=== PATIENT | female | born 1995 ===

== ENCOUNTER 2016-05-21 01:13 | Observation (INO) | payer OTHER, MEDICAID ==
[2016-05-21] MEDS ORDERED: Sodium Chloride 0.9% 1,000 ML IV STA ×2 (01:33→05:23)
[2016-05-21 01:49] LABS: BASO # 0.1 K/uL (0.0-0.2); BASO % 0.9 % (0.0-2.0); EOS # 0.1 K/uL (0.0-0.7); EOS % 1.7 % (0.0-4.0); HEMATOCRIT 40.7 % (34.0-47.0); LYMPH % 42.1 % (20.0-40.0); MEAN CELL VOLUME 87.9 fl (81.0-99.0); MEAN CORPUSCULAR HEMOGLOBIN 28.4 pg (27.0-31.0); MEAN CORPUSCULAR HGB CONC 32.3 g/dL (33.0-37.0); MEAN PLATELET VOLUME 8.7 fl (7.2-11.7); MONO # 0.6 K/uL (0.0-0.8); MONO % 7.8 % (0.0-10.0); NEUT # 3.3 K/uL (1.8-7.0); NEUT % 47.5 % (50.0-75.0); RED CELL DISTRIBUTION WIDTH 13.5 % (11.5-14.5); WHITE BLOOD COUNT 7.1 K/uL (4.8-10.8)
--- NOTE | 2016-05-21 02:01 | ED PDOC ---
HPI: Psych/Substance Abuse Time Seen by Provider: 05/21/16 01:27 Chief Complaint (Nursing): Substance Abuse Chief Complaint (Provider): Overdose ED Caveat: Uncooperative History Per: EMS History/Exam Limitations: no limitations Onset/Duration Of Symptoms: Mins Current Symptoms Are (Timing): Still Present Suicide/Self Injury Attempted (Context): Ingestion Severity: Moderate Additional History Per: EMS Additional Complaint(s): Pt is a 20yo female, brought to ED by EMS for evaluation s/p suicidal attempt. Per EMS, pt took an entire bottle of wellbutrin in an attempt to kill herself. Pt unwilling to give provider more information as to how many pills she took, how many mg the tablets are and what time she took the pills. She offers no other complaints. Pt is uncooperative so a full HPI is unattainable. Past Medical History Reviewed: Historical Data, Nursing Documentation, Vital Signs Vital Signs: Last Vital Signs Temp 97.8 F 05/21/16 01:51 Pulse 95 H 05/21/16 01:51 Resp 16 05/21/16 01:51 BP 103/66 05/21/16 01:51 Pulse Ox 100 05/21/16 01:51 - Family History Family History: States: No Known Family Hx - Home Medications Home Medications: Ambulatory Orders Medication Instructions Recorded Sertraline [Zoloft] 100 mg PO DAILY 05/21/16 buPROPion [Wellbutrin] 100 mg PO DAILY 05/21/16 - Allergies Allergies/Adverse Reactions: Allergies Allergy/AdvReac Type Severity Reaction Status Date / Time No Known Allergies Allergy Verified 05/21/16 01:26 Review of Systems ROS Statement: Except As Marked, All Systems Reviewed And Found Negative Psych: Positive for: Suicidal ideation (suicide attempt with overdose on wellbutrin) Physical Exam - Reviewed Nursing Documentation Reviewed: Yes Vital Signs Reviewed: Yes - Physical Exam Appears: Positive for: Well, Non-toxic, No Acute Distress Head Exam: Positive for: ATRAUMATIC, NORMAL INSPECTION, NORMOCEPHALIC Skin: Positive for: Normal Color, Warm, DRY Eye Exam: Positive for: Normal appearance, EOMI, PERRL Neck: Positive for: Normal, Supple Cardiovascular/Chest: Positive for: Regular Rate, Rhythm Respiratory: Positive for: Normal Breath Sounds. Negative for: Respiratory Distress Gastrointestinal/Abdominal: Positive for: Soft. Negative for: Tenderness Neurologic/Psych: Positive for: Alert, Oriented - Laboratory Results Result Diagrams: 05/21/16 13:30 05/21/16 13:13 - ECG O2 Sat by Pulse Oximetry: 100 (RA) Pulse Ox Interpretation: Normal - Critical Care Total Time (In Min): 30 Documented Critical Care: Time excludes all time spent performint seperately billable procedures Medical Decision Making Medical Decision Making: Time: 0140 Impression: Suicidal attempt with overdose on wellbutrin Plan: -- Poison control consult -- CBC -- PTT -- Prothrombin Time -- IV Fluids -- Urinalysis -- 1:1 observation --Reassess Time: 0318 Labs reviewed with no significant abnormalities. Poison control advised that pt be observed for 12-24 hours due to lack of certainty regarding amount of Wellbutrin taken and dosage amount and if the pills were extended release. Also advised consideration of administration of charcoal, which was ordered. Case discussed with James Zimmer, who will admit pt unde Dr. Hayes, medicine animal control officer. Diagnosis: Overdose on Wellbutrin Scribe Attestation: Documented by Lilibeth Torres acting as a scribe for Joseph Abbott MD. Provider Attestation: All medical record entries made by the Scribe were at my direction and personally dictated by me. I have reviewed the chart and agree that the record accurately reflects my personal performance of the history, physical exam, medical decision making, and the department course for this patient. I have also personally directed, reviewed, and agree with the discharge instructions and disposition. Disposition - Clinical Impression Clinical Impression: Overdose - Patient ED Disposition Is Patient to be Admitted: Yes Discussed With : James Zimmer - Disposition Disposition Time: 03:18 Condition: FAIR - Pt Status Changed To: Hospital Disposition Of: Inpatient - Admit Certification Admit to Inpatient:: After my assessment, the patient will require hospitalization for at least two midnights. This is because of the severity of symptoms shown, intensity of services needed, and/or the medical risk in this patient being treated as an outpatient.
[2016-05-21 02:05] LABS: PARTIAL THROMBOPLASTIN TIME 25.7 SECONDS (23.3-32.5)
[2016-05-21 02:09] LABS: ALB/GLOB RATIO 1.2 (1.0-2.1); ALCOHOL SERUM 164 mg/dl (0-10); ALKALINE PHOSPHATASE 75 U/L (38-126); ALT/SGPT 26 U/L (9-52); AST/SGOT 34 U/L (14-36); BILIRUBIN,TOTAL 0.4 mg/dl (0.2-1.3); BLOOD UREA NITROGEN 10 mg/dl (7-17); CALCIUM 9.2 mg/dL (8.4-10.2); CARBON DIOXIDE 21 mmol/L (22-30); CHLORIDE 109 mmol/L (98-107); GFR AFRICAN-AMERICAN > 60; GLUCOSE,RANDOM 93 mg/dL (65-105); POTASSIUM 4.1 MMOL/L (3.6-5.0); SODIUM 150 mmol/l (132-148); TOTAL PROTEIN 8.4 G/DL (6.3-8.2)
[2016-05-21] MEDS ORDERED: Activated Charcoal/Sorbitol 25 GM/120 ML PO ONE (02:57)
[2016-05-21 03:46] LABS: RBC URINE < 1 /hpf (0-3); URINE BILIRUBIN NEGATIVE (NEGATIVE); URINE BLOOD NEGATIVE (NEGATIVE); URINE COLOR COLORLESS (YELLOW); URINE GLUCOSE (UA) NEG (Normal); URINE KETONE NEGATIVE (NEGATIVE); URINE LEUKOCYTE ESTERASE NEG Leu/uL (Negative); URINE PROTEIN NEGATIVE (NEGATIVE); URINE UROBILINOGEN 0.2-1.0 mg/dL (0.2-1.0); WBC URINE 1 /hpf (0-5)
--- NOTE | 2016-05-21 11:26 | CP.PCM.HP ---
History of Present Illness - History of Present Illness History of Present Illness: pt admitted for suicide attempt, states was depressed and watchinga tv show about suicide and drinking wine. took wellbutrin, unkn amt or dsoing and another unkn medication-unkn amt or dsoing. was given activated charcol in er. at preent pain free but drowsy and tachycardic-ST 110-120/ no f/c, n/v/d bw noted. repeat bw and ekg at 1500. pending psych consult calm and cooperative w/ mother and 1:1 at beside. Present on Admission - Present on Admission Any Indicators Present on Admission: No Review of Systems - Cardiovascular Cardiovascular: As Per HPI, Rapid Heart Rate - Psychiatric Psychiatric: As Per HPI, Suicidal Ideation Past Patient History - Past Social History Smoking Status: Never Smoked - PSYCHIATRIC Hx Depression: Yes Hx Substance Use: Yes - SURGICAL HISTORY Hx Surgeries: No - ANESTHESIA Hx Anesthesia: No Meds Allergies/Adverse Reactions: Allergies Allergy/AdvReac Type Severity Reaction Status Date / Time No Known Allergies Allergy Verified 05/21/16 01:26 Physical Exam - Constitutional Appears: Well, Non-toxic, No Acute Distress - Head Exam Head Exam: ATRAUMATIC, NORMAL INSPECTION, NORMOCEPHALIC - Eye Exam Eye Exam: EOMI, Normal appearance, PERRL Pupil Exam: NORMAL ACCOMODATION, PERRL - ENT Exam ENT Exam: Mucous Membranes Moist, Normal Exam - Neck Exam Neck exam: Positive for: Normal Inspection - Respiratory Exam Respiratory Exam: Clear to Auscultation Bilateral, NORMAL BREATHING PATTERN - Cardiovascular Exam Cardiovascular Exam: Tachycardia, REGULAR RHYTHM, RRR, +S1, +S2 - GI/Abdominal Exam GI & Abdominal Exam: Normal Bowel Sounds, Soft. absent: Tenderness - Extremities Exam Extremities exam: Positive for: full ROM, normal capillary refill, normal inspection, pedal pulses present - Back Exam Back exam: NORMAL INSPECTION - Neurological Exam Neurological exam: Alert, CN II-XII Intact, Normal Gait, Oriented x3, Reflexes Normal - Psychiatric Exam Psychiatric exam: Depressed, Normal Mood - Skin Skin Exam: Dry, Intact, Normal Color, Warm Results - Vital Signs Recent Vital Signs: Last Vital Signs Temp 97.9 F 05/21/16 08:30 Pulse 109 H 05/21/16 10:47 Resp 14 05/21/16 10:47 BP 104/47 L 05/21/16 10:47 Pulse Ox 99 05/21/16 10:47 - Labs Result Diagrams: 05/21/16 01:46 05/21/16 01:46 Labs: Laboratory Results - last 24 hr 05/21/16 05/21/16 03:15 03:18 Urine Color Colorless Urine Clarity Clear Urine pH 6.0 Ur Specific [place] 1.006 Urine Protein Negative Urine Glucose (UA) Neg Urine Ketones Negative Urine Blood Negative Urine Nitrate Negative Urine Bilirubin Negative Urine Urobilinogen 0.2-1.0 Ur Leukocyte Esterase Neg Urine RBC (Auto) < 1 Urine Microscopic WBC 1 Ur Squamous Epith Cells < 1 Urine Opiates Screen Negative Urine Methadone Screen Negative Ur Barbiturates Screen Negative Ur Phencyclidine Scrn Negative Ur Amphetamines Screen Negative U Benzodiazepines Scrn Negative U Oth Cocaine Metabols Negative U Cannabinoids Screen Negative Assessment & Plan (1) Overdose Assessment and Plan: suicide attempot-1:1, psych consult pending ivf tele monitor rpeat bw and ekg hold all meds no fruther si/hi verbalized Status: Acute (2) DVT prophylaxis Assessment and Plan: scd and aehose no anticoag for now Status: Acute Decision To Admit - Pt Status Changed To: Hospital Disposition Of: Inpatient - Admit Certification Admit to Inpatient:: After my assessment, the patient will require hospitalization for at least two midnights. This is because of the severity of symptoms shown, intensity of services needed, and/or the medical risk in this patient being treated as an outpatient. - . Bed Request Type: Telemetry Admitting Physician: Yosi Hayes
--- NOTE | 2016-05-21 12:28 | RAD ---
HISTORY: Admission. Portable study 04:15. COMPARISON: No prior. FINDINGS: LUNGS: No active pulmonary disease. PLEURA: No significant pleural effusion identified, no pneumothorax apparent. CARDIOVASCULAR: Normal. OSSEOUS STRUCTURES: No significant abnormalities. VISUALIZED UPPER ABDOMEN: Normal. OTHER FINDINGS: None. IMPRESSION: No active disease.
[2016-05-21 13:39] LABS: BASO % 0.9 % (0.0-2.0); EOS % 0.3 % (0.0-4.0); HEMATOCRIT 34.1 % (34.0-47.0); LYMPH % 18.6 % (20.0-40.0); MEAN CELL VOLUME 87.1 fl (81.0-99.0); MEAN CORPUSCULAR HEMOGLOBIN 28.5 pg (27.0-31.0); MEAN CORPUSCULAR HGB CONC 32.7 g/dL (33.0-37.0); MEAN PLATELET VOLUME 8.6 fl (7.2-11.7); MONO # 0.3 K/uL (0.0-0.8); MONO % 5.4 % (0.0-10.0); NEUT # 3.9 K/uL (1.8-7.0); NEUT % 74.8 % (50.0-75.0); NRBC % 0.1 % (0.0-0.0); WHITE BLOOD COUNT 5.2 K/uL (4.8-10.8)
[2016-05-21 13:50] LABS: ALB/GLOB RATIO 1.2 (1.0-2.1); ALCOHOL SERUM < 10 mg/dl (0-10); ALKALINE PHOSPHATASE 65 U/L (38-126); ALT/SGPT 31 U/L (9-52); AST/SGOT 23 U/L (14-36); BILIRUBIN,TOTAL 0.4 mg/dl (0.2-1.3); BLOOD UREA NITROGEN 5 mg/dl (7-17); CALCIUM 8.6 mg/dL (8.4-10.2); CARBON DIOXIDE 23 mmol/L (22-30); CHLORIDE 107 mmol/L (98-107); GFR AFRICAN-AMERICAN > 60; GLUCOSE,RANDOM 91 mg/dL (65-105); POTASSIUM 3.9 MMOL/L (3.6-5.0); SODIUM 141 mmol/l (132-148); TOTAL PROTEIN 6.4 G/DL (6.3-8.2)
[2016-05-21] MEDS: Sodium Chloride 0.9% 1,000 ML IV SCH ×2 (14:15→22:00)
--- NOTE | 2016-05-21 20:09 | CARD ---
APPROVED REPORT EKG Measurement Heart [id number] <Conclusion> Normal sinus rhythm Normal ECG
--- NOTE | 2016-05-21 20:10 | CARD ---
APPROVED REPORT EKG Measurement Heart [id number] <Conclusion> Normal sinus rhythm Normal ECG
[2016-05-22] MEDS: Sodium Chloride 0.9% 1,000 ML IV SCH ×2 (04:32→12:10)
[2016-05-22 05:15] LABS: BASO % 0.7 % (0.0-2.0); EOS % 0.3 % (0.0-4.0); HEMATOCRIT 33.6 % (34.0-47.0); LYMPH # 1.9 K/uL (1.0-4.3); LYMPH % 29.8 % (20.0-40.0); MEAN CELL VOLUME 87.5 fl (81.0-99.0); MEAN CORPUSCULAR HEMOGLOBIN 28.6 pg (27.0-31.0); MEAN CORPUSCULAR HGB CONC 32.7 g/dL (33.0-37.0); MEAN PLATELET VOLUME 8.9 fl (7.2-11.7); MONO # 0.5 K/uL (0.0-0.8); NEUT # 3.8 K/uL (1.8-7.0); NEUT % 61.2 % (50.0-75.0); NRBC % 0.1 % (0.0-0.0); RED CELL DISTRIBUTION WIDTH 12.8 % (11.5-14.5); WHITE BLOOD COUNT 6.3 K/uL (4.8-10.8)
[2016-05-22 05:17] LABS: ALB/GLOB RATIO 1.1 (1.0-2.1); ALKALINE PHOSPHATASE 57 U/L (38-126); ALT/SGPT 26 U/L (9-52); AST/SGOT 29 U/L (14-36); BILIRUBIN,TOTAL 0.5 mg/dl (0.2-1.3); BLOOD UREA NITROGEN 5 mg/dl (7-17); CALCIUM 8.7 mg/dL (8.4-10.2); CARBON DIOXIDE 23 mmol/L (22-30); CHLORIDE 108 mmol/L (98-107); GFR AFRICAN-AMERICAN > 60; GLUCOSE,RANDOM 88 mg/dL (65-105); POTASSIUM 3.8 MMOL/L (3.6-5.0); SODIUM 143 mmol/l (132-148); TOTAL PROTEIN 5.9 G/DL (6.3-8.2)
--- NOTE | 2016-05-22 06:21 | CARD ---
APPROVED REPORT EKG Measurement Heart [id number] [place] [id number] <Conclusion> Normal sinus rhythm Normal ECG
--- NOTE | 2016-05-22 07:22 | CP.PCM.PN ---
Subjective - Date & Time of Evaluation Date of Evaluation: 05/22/16 Time of Evaluation: 07:22 - Subjective Subjective: pt doing well, no complaints. pneding am ekg. nsr on miontor, pm ekg wnl. am labs wnl. 1:1 at bedside. calm and cooperative. for psych eval. Objective - Vital Signs/Intake and Output Vital Signs (last 24 hours): Temp Pulse Resp BP Pulse Ox 98.6 F 100 H 18 101/63 98 05/22/16 05:00 05/22/16 05:00 05/22/16 05:00 05/22/16 05:00 05/22/16 05:00 - Medications Medications: Current Medications Sodium Chloride (Sodium Chloride 0.9%) 1,000 mls @ 150 mls/hr IV .Q6H40M ELY Stop: 05/22/16 14:01 Last Admin: 05/22/16 04:32 Dose: 150 mls/hr Ondansetron HCl (Zofran Inj) 4 mg IVP Q6 PRN PRN Reason: Nausea/Vomiting Last Admin: 05/21/16 14:10 Dose: 4 mg - Labs Labs: 05/22/16 04:00 05/22/16 04:00 PT 10.9 SECONDS (9.6-11.2) 05/21/16 01:46 INR 1.05 (0.92-1.08) 05/21/16 01:46 APTT 25.7 SECONDS (23.3-32.5) 05/21/16 01:46 - Constitutional Appears: Well, Non-toxic, No Acute Distress - Head Exam Head Exam: ATRAUMATIC, NORMAL INSPECTION, NORMOCEPHALIC - Eye Exam Eye Exam: EOMI, Normal appearance, PERRL Pupil Exam: NORMAL ACCOMODATION, PERRL - ENT Exam ENT Exam: Mucous Membranes Moist, Normal Exam - Neck Exam Neck Exam: Full ROM, Normal Inspection. absent: Lymphadenopathy - Respiratory Exam Respiratory Exam: Clear to Ausculation Bilateral, NORMAL BREATHING PATTERN - Cardiovascular Exam Cardiovascular Exam: REGULAR RHYTHM, +S1, +S2. absent: Murmur - GI/Abdominal Exam GI & Abdominal Exam: Soft, Normal Bowel Sounds. absent: Tenderness - Exam Exam: NORMAL INSPECTION - Extremities Exam Extremities Exam: Full ROM, Normal Capillary Refill, Normal Inspection. absent : Joint Swelling, Pedal Edema - Back Exam Back Exam: NORMAL INSPECTION - Neurological Exam Neurological Exam: Alert, Awake, CN II-XII Intact, Normal Gait, Oriented x3 - Psychiatric Exam Psychiatric exam: Normal Affect, Normal Mood - Skin Skin Exam: Dry, Intact, Normal Color, Warm Assessment and Plan (1) Overdose Status: Acute (2) DVT prophylaxis Status: Acute - Assessment and Plan (Free Text) Assessment: (1) Overdose Assessment and Plan: suicide attempot-1:1, psych consult pending ivf tele monitor rpeat bw and ekg hold all meds no fruther si/hi verbalized Status: Acute (2) DVT prophylaxis Assessment and Plan: scd and aehose no anticoag for now Status: Acute medically cleared
--- NOTE | 2016-05-22 09:55 | CP.PCM.CON ---
History of Present Illness - History of Present Illness History of Present Illness: Psychiatry consult called for evaluation of suicide attempt CC: "I took a bunch of pills." HPI: 20 yo female w/ h/o depression, presented s/p suicide attempt by overdosing on Wellbutrin, Zoloft and "migraine medications." Patient reports that she was drinking two nights ago and felt overwhelmed by her many problems ( would not specify what the problems are) and impulsively decided to overdose on pills as an admitted suicide attempt. Patient reports that she is not currently feeling suicidal. She expressed remorse for her recent attempt and wants to be discharged to home today so she can continue going to school. She reports anxiety/poor sleep/normal appetite. NO chele/delusions/paranoia/ hallucinations/homicidal ideation. PPHx: Outpatient psychiatric treatment, currently taking Wellbutrin 100 mg PO Daily. Previously prescribed Zoloft. Last psychiatric appointment, over a month ago. Denies h/o suicide attempts or self injurious behaviors. MHx: Denies All: NKDA FHx: Denies family h/o mental illness SHx: Attends art school. Lives with her parents. +Chronic marijuana abuse. + drinks alcohol intermittently on the weekends. No IVDU. No cigarettes. MSE: A + O x 3. Calm, cooperative, good eye contact. Looks stated age. Speech normal. Mood "okay". Affect- full range. Thought process-linear, goal oriented. Thought content- no delusions. No hallucinations. Denies suicidal ideation/plan/intent. Denies HI. Insight/judgement-fair Impression: 20 yo female w/ h/o depression s/p suicide attempt by overdose, would benefit from inpatient psychiatric admission, but currently refusing voluntary admission. Recommendations: -Screen for involuntary psychiatric admission -Continue 1:1 for safety -Hold Wellbutrin -Call w/ further questions, Dr. Joyce [phone] Review of Systems - Review of Systems All systems: reviewed and no additional remarkable complaints except - Psychiatric Psychiatric: As Per HPI, Anxiety, Depression, Suicidal Ideation Past Patient History - Past Medical History & Family History Past Medical History?: Yes - Past Social History Smoking Status: Never Smoked - CARDIAC Hx Cardiac Disorders: No - PULMONARY Hx Respiratory Disorders: No - NEUROLOGICAL Hx Neurological Disorder: No - HEENT Hx HEENT Problems: No - RENAL Hx Chronic Kidney Disease: No - ENDOCRINE/METABOLIC Hx Endocrine Disorders: No - HEMATOLOGICAL/ONCOLOGICAL Hx Blood Disorders: No - INTEGUMENTARY Hx Dermatological Problems: No - MUSCULOSKELETAL/RHEUMATOLOGICAL Hx Musculoskeletal Disorders: No Hx Falls: No - GASTROINTESTINAL Hx Gastrointestinal Disorders: No - GENITOURINARY/GYNECOLOGICAL Hx Genitourinary Disorders: No - PSYCHIATRIC Hx Substance Use: Yes - SURGICAL HISTORY Hx Surgeries: No - ANESTHESIA Hx Anesthesia: No Meds Allergies/Adverse Reactions: Allergies Allergy/AdvReac Type Severity Reaction Status Date / Time No Known Allergies Allergy Verified 05/21/16 01:26 - Medications Medications: Current Medications Sodium Chloride (Sodium Chloride 0.9%) 1,000 mls @ 150 mls/hr IV .Q6H40M ELY Stop: 05/22/16 14:01 Last Admin: 05/22/16 04:32 Dose: 150 mls/hr Ondansetron HCl (Zofran Inj) 4 mg IVP Q6 PRN PRN Reason: Nausea/Vomiting Last Admin: 05/21/16 14:10 Dose: 4 mg Results - Vital Signs Recent Vital Signs: Last Vital Signs Temp 98.6 F 05/22/16 05:00 Pulse 100 H 05/22/16 05:00 Resp 18 05/22/16 05:00 BP 101/63 05/22/16 05:00 Pulse Ox 98 05/22/16 05:00 - Labs Result Diagrams: 05/22/16 04:00 05/22/16 04:00 Labs: Laboratory Results - last 24 hr 05/21/16 05/21/16 05/22/16 13:13 13:30 04:00 WBC 5.2 6.3 RBC 3.92 3.84 Hgb 11.2 L 11.0 L Hct 34.1 33.6 L MCV 87.1 87.5 MCH 28.5 28.6 MCHC 32.7 L 32.7 L RDW 13.0 12.8 Plt Count 212 200 MPV 8.6 8.9 Neut % (Auto) 74.8 61.2 Lymph % (Auto) 18.6 L 29.8 [place] % (Auto) 5.4 8.0 Eos % (Auto) 0.3 0.3 Baso % (Auto) 0.9 0.7 Neut # 3.9 3.8 Lymph # 1.0 1.9 [place] # 0.3 0.5 Eos # 0.0 0.0 Baso # 0.0 0.0 Sodium 141 143 Potassium 3.9 3.8 Chloride 107 108 H Carbon Dioxide 23 23 Anion Gap 16 16 BUN 5 L 5 L Creatinine 0.5 L 0.5 L Est GFR ( Amer) > 60 > 60 Est GFR (Non-Af Amer) > 60 > 60 Random Glucose 91 88 Calcium 8.6 8.7 Total Bilirubin 0.4 0.5 AST 23 29 ALT 31 26 Alkaline Phosphatase 65 57 Total Protein 6.4 5.9 L Albumin 3.5 D 3.1 L Globulin 2.9 2.7 Albumin/Globulin Ratio 1.2 1.1 Alcohol, Quantitative < 10
[2016-05-22 15:42] VITALS: RESP 20; TEMP 98.5
[2016-05-22 18:58] VITALS: BP 100/64; PULSE 90; O2SAT 99
--- NOTE | 2016-05-30 08:50 | CP.PCM.DIS ---
Provider - Provider Date of Admission: 05/21/16 02:58 Attending physician: Yosi Hayes MD Time Spent in preparation of Discharge (in minutes): 15 Diagnosis - Discharge Diagnosis (1) Overdose Status: Acute (2) DVT prophylaxis Status: Acute Hospital Course - Lab Results Lab Results: Most Recent Lab Values WBC 6.3 K/uL (4.8-10.8) 05/22/16 04:00 RBC 3.84 Mil/uL (3.80-5.20) 05/22/16 04:00 Hgb 11.0 g/dL (12.0-16.0) L 05/22/16 04:00 Hct 33.6 % (34.0-47.0) L 05/22/16 04:00 MCV 87.5 fl (81.0-99.0) 05/22/16 04:00 MCH 28.6 pg (27.0-31.0) 05/22/16 04:00 MCHC 32.7 g/dL (33.0-37.0) L 05/22/16 04:00 RDW 12.8 % (11.5-14.5) 05/22/16 04:00 Plt Count 200 K/uL (130-400) 05/22/16 04:00 MPV 8.9 fl (7.2-11.7) 05/22/16 04:00 Neut % (Auto) 61.2 % (50.0-75.0) 05/22/16 04:00 Lymph % (Auto) 29.8 % (20.0-40.0) 05/22/16 04:00 [place] % (Auto) 8.0 % (0.0-10.0) 05/22/16 04:00 Eos % (Auto) 0.3 % (0.0-4.0) 05/22/16 04:00 Baso % (Auto) 0.7 % (0.0-2.0) 05/22/16 04:00 Neut # 3.8 K/uL (1.8-7.0) 05/22/16 04:00 Lymph # 1.9 K/uL (1.0-4.3) 05/22/16 04:00 [place] # 0.5 K/uL (0.0-0.8) 05/22/16 04:00 Eos # 0.0 K/uL (0.0-0.7) 05/22/16 04:00 Baso # 0.0 K/uL (0.0-0.2) 05/22/16 04:00 PT 10.9 SECONDS (9.6-11.2) 05/21/16 01:46 INR 1.05 (0.92-1.08) 05/21/16 01:46 APTT 25.7 SECONDS (23.3-32.5) 05/21/16 01:46 Sodium 143 mmol/l (132-148) 05/22/16 04:00 Potassium 3.8 MMOL/L (3.6-5.0) 05/22/16 04:00 Chloride 108 mmol/L (98-107) H 05/22/16 04:00 Carbon Dioxide 23 mmol/L (22-30) 05/22/16 04:00 Anion Gap 16 (10-20) 05/22/16 04:00 BUN 5 mg/dl (7-17) L 05/22/16 04:00 Creatinine 0.5 mg/dL (0.7-1.2) L 05/22/16 04:00 Est GFR ( Amer) > 60 05/22/16 04:00 Est GFR (Non-Af Amer) > 60 05/22/16 04:00 POC Glucose (mg/dL) 98 mg/dL (65-110) 05/21/16 01:24 Random Glucose 88 mg/dL (65-105) 05/22/16 04:00 Calcium 8.7 mg/dL (8.4-10.2) 05/22/16 04:00 Total Bilirubin 0.5 mg/dl (0.2-1.3) 05/22/16 04:00 AST 29 U/L (14-36) 05/22/16 04:00 ALT 26 U/L (9-52) 05/22/16 04:00 Alkaline Phosphatase 57 U/L (38-126) 05/22/16 04:00 Total Protein 5.9 G/DL (6.3-8.2) L 05/22/16 04:00 Albumin 3.1 g/dL (3.5-5.0) L 05/22/16 04:00 Globulin 2.7 gm/dL (2.2-3.9) 05/22/16 04:00 Albumin/Globulin Ratio 1.1 (1.0-2.1) 05/22/16 04:00 Urine Color Colorless (YELLOW) 05/21/16 03:15 Urine Clarity Clear (Clear) 05/21/16 03:15 Urine pH 6.0 (5.0-8.0) 05/21/16 03:15 Ur Specific [place] 1.006 (1.003-1.030) 05/21/16 03:15 Urine Protein Negative mg/dL (NEGATIVE) 05/21/16 03:15 Urine Glucose (UA) Neg mg/dL (Normal) 05/21/16 03:15 Urine Ketones Negative mg/dL (NEGATIVE) 05/21/16 03:15 Urine Blood Negative (NEGATIVE) 05/21/16 03:15 Urine Nitrate Negative (NEGATIVE) 05/21/16 03:15 Urine Bilirubin Negative (NEGATIVE) 05/21/16 03:15 Urine Urobilinogen 0.2-1.0 mg/dL (0.2-1.0) 05/21/16 03:15 Ur Leukocyte Esterase Neg Krys/uL (Negative) 05/21/16 03:15 Urine RBC (Auto) < 1 /hpf (0-3) 05/21/16 03:15 Urine Microscopic WBC 1 /hpf (0-5) 05/21/16 03:15 Ur Squamous Epith Cells < 1 /hpf (0-5) 05/21/16 03:15 Salicylates < 1.0 mg/dl 05/21/16 01:46 Urine Opiates Screen Negative (NEGATIVE) 05/21/16 03:18 Urine Methadone Screen Negative (NEGATIVE) 05/21/16 03:18 Acetaminophen < 10.0 ug/ml (10.0-30.0) L 05/21/16 01:46 Ur Barbiturates Screen Negative (NEGATIVE) 05/21/16 03:18 Ur Phencyclidine Scrn Negative (NEGATIVE) 05/21/16 03:18 Ur Amphetamines Screen Negative (NEGATIVE) 05/21/16 03:18 U Benzodiazepines Scrn Negative (NEGATIVE) 05/21/16 03:18 U Oth Cocaine Metabols Negative (NEGATIVE) 05/21/16 03:18 U Cannabinoids Screen Negative (NEGATIVE) 05/21/16 03:18 Alcohol, Quantitative < 10 mg/dl (0-10) 05/21/16 13:13 Discharge Exam - Head Exam Head Exam: ATRAUMATIC, NORMAL INSPECTION, NORMOCEPHALIC Discharge Plan - Follow Up Plan Condition: FAIR Disposition: DISCHARGE TO PSYCH HOSPITAL Additional Instructions: dc to psych final dx wellbutrin od
== END 2016-05-22 18:50 ==
LOC: H.ER 01:13 → INTOOBSV 02:58 → H.ERHOLD 02:58 → H.TEL 16:13
PROVIDERS: ADMIT Family Medicine; ATTEND Family Medicine
DX: T43.292A Poisoning by other antidepressants, intentional self-harm, initial encounter (principal); F32.9 Major depressive disorder, single episode, unspecified; R40.0 Somnolence; R00.0 Tachycardia, unspecified; Y92.9 Unspecified place or not applicable; F12.10 Cannabis abuse, uncomplicated; F41.9 Anxiety disorder, unspecified

== ENCOUNTER 2016-05-22 16:03 | Inpatient (IN) | payer MEDICAID, OTHER ==
[2016-05-22 19:43] VITALS: BMI 21.7
[2016-05-22] MEDS ORDERED: Alum-Mag Hydrox-Simethicone Susp (30 mL) PO PRN (19:50)
[2016-05-22] MEDS ORDERED: Magnesium Hydroxide Susp 30 ml UD PO PRN (19:50)
[2016-05-23] MEDS ORDERED: Insulin Regular 100 units/ml SC SCH (07:30)
--- NOTE | 2016-05-23 07:35 | CP.PCM.HP ---
History of Present Illness - History of Present Illness History of Present Illness: pt evaluted on 3np. doing well no se from wellbutrin od. no si/hi. no aggression. not overtly depressed at present. no f/c, n/v/d. no medical copmplaints at this time. Present on Admission - Present on Admission Any Indicators Present on Admission: No Review of Systems - Psychiatric Psychiatric: As Per HPI, Depression, Suicidal Ideation Past Patient History - Past Medical History & Family History Past Medical History?: Yes - Past Social History Smoking Status: Never Smoked - CARDIAC Hx Cardiac Disorders: No - PULMONARY Hx Respiratory Disorders: No - NEUROLOGICAL Hx Neurological Disorder: No - HEENT Hx HEENT Problems: No - RENAL Hx Chronic Kidney Disease: No - ENDOCRINE/METABOLIC Hx Endocrine Disorders: No - HEMATOLOGICAL/ONCOLOGICAL Hx Blood Disorders: No - INTEGUMENTARY Hx Dermatological Problems: No - MUSCULOSKELETAL/RHEUMATOLOGICAL Hx Musculoskeletal Disorders: No Hx Falls: No - GASTROINTESTINAL Hx Gastrointestinal Disorders: No - GENITOURINARY/GYNECOLOGICAL Hx Genitourinary Disorders: No - PSYCHIATRIC Hx Depression: Yes (since 15 yrs old) Hx Substance Use: Yes (marijuana use) - SURGICAL HISTORY Hx Surgeries: No Hx Appendectomy: Yes (2013) - ANESTHESIA Hx Anesthesia: No Meds Allergies/Adverse Reactions: Allergies Allergy/AdvReac Type Severity Reaction Status Date / Time No Known Allergies Allergy Verified 05/21/16 01:26 Physical Exam - Constitutional Appears: Well, Non-toxic, No Acute Distress - Head Exam Head Exam: ATRAUMATIC, NORMAL INSPECTION, NORMOCEPHALIC - Eye Exam Eye Exam: EOMI, Normal appearance, PERRL Pupil Exam: NORMAL ACCOMODATION, PERRL - ENT Exam ENT Exam: Mucous Membranes Moist, Normal Exam - Neck Exam Neck exam: Positive for: Normal Inspection - Respiratory Exam Respiratory Exam: Clear to Auscultation Bilateral, NORMAL BREATHING PATTERN - Cardiovascular Exam Cardiovascular Exam: REGULAR RHYTHM, RRR, +S1, +S2 - GI/Abdominal Exam GI & Abdominal Exam: Normal Bowel Sounds, Soft. absent: Tenderness - Extremities Exam Extremities exam: Positive for: full ROM, normal capillary refill, normal inspection, pedal pulses present - Back Exam Back exam: NORMAL INSPECTION - Neurological Exam Neurological exam: Alert, CN II-XII Intact, Normal Gait, Oriented x3, Reflexes Normal - Psychiatric Exam Psychiatric exam: Normal Affect, Normal Mood - Skin Skin Exam: Dry, Intact, Normal Color, Warm Results - Vital Signs Recent Vital Signs: Last Vital Signs Temp 98.2 F 05/22/16 21:00 Pulse 92 H 05/22/16 21:00 Resp 18 05/22/16 21:00 BP 96/49 L 05/22/16 21:00 Pulse Ox Assessment & Plan (1) Overdose Assessment and Plan: psych meds, interventions, therapies dc as per psych, may reconsult medicine as indicated Status: Acute (2) Depressed Status: Acute Decision To Admit - Pt Status Changed To: Hospital Disposition Of: Inpatient - Admit Certification Admit to Inpatient:: After my assessment, the patient will require hospitalization for at least two midnights. This is because of the severity of symptoms shown, intensity of services needed, and/or the medical risk in this patient being treated as an outpatient. - . Bed Request Type: Adult Psychiatry Admitting Physician: Yosi Hayes
[2016-05-23 08:02] LABS: T4 8.64 ug/dl (5.5-11.0)
[2016-05-23 08:16] LABS: THYROID STIMULATING HORMONE 2.93 mIU/ML (0.46-4.68)
--- NOTE | 2016-05-23 10:49 | PCM.PSYCH ---
Initial Psychiatric Evaluation - Initial Psychiatric Evaluation Type of Admission: Voluntary Legal Status: Capacity Patient's Reaction to Hospitalization: CC: "I took a bunch of pills." HPI: 20 yo female w/ h/o depression, presented s/p suicide attempt by overdosing on Wellbutrin, Zoloft and "migraine medications." Patient reports that she was drinking three nights ago and felt overwhelmed by her many problems (would not specify what the problems are) and impulsively decided to overdose on pills as an admitted suicide attempt. Patient reports that she is not currently feeling suicidal. She expressed remorse for her recent attempt. She reports intermittent anxiety/poor sleep/normal appetite. NO chele/delusions /paranoia/hallucinations/homicidal ideation. Patient states that she does not want to restart antidepressants or any other medication today due to her recently overdose. She states that she wants to let her body clear some of the medications. She is agreeable to discussing the possibility of restarting medication tomorrow. PPHx: Outpatient psychiatric treatment, currently taking Wellbutrin 100 mg PO Daily. Previously prescribed Zoloft. Last psychiatric appointment, over a month ago. Denies h/o suicide attempts or self injurious behaviors. MHx: Denies All: NKDA FHx: Denies family h/o mental illness SHx: Attends art school. Lives with her parents. +Chronic marijuana abuse. + drinks alcohol intermittently on the weekends. No IVDU. No cigarettes. Current Medications: Active Medications Generic Name Dose Route Start Last Admin Trade Name Freq PRN Reason Stop Dose Admin Acetaminophen 650 mg 05/22/16 19:50 Tylenol 325mg Tab PO Q4 PRN Pain, moderate (4-7) Al Hydrox/Mg Hydrox/Simethicone 30 ml 05/22/16 19:50 Maalox Plus 30 Ml PO Q4 PRN Dyspepsia Lorazepam 1 mg 05/22/16 19:50 Ativan PO Q4 PRN Anxiety/Agitation Lorazepam 2 mg 05/22/16 19:50 Ativan IM Q4 PRN Anxiety/Agitation,Unable PO Magnesium Hydroxide 30 ml 05/22/16 19:50 Milk Of Magnesia PO HS PRN Constipation Trazodone HCl 50 mg 05/22/16 20:38 Desyrel PO HS PRN Insomnia Past Psychiatric History - Past Psychiatric History Pertinent Medical Hx (Current Medical&Sleep Prob, Allergies): Allergies Allergy/AdvReac Type Severity Reaction Status Date / Time No Known Allergies Allergy Verified 05/21/16 01:26 Review of Systems - Review of Systems All systems: reviewed and no additional remarkable complaints except - Neurological Neurological: Dizziness - Psychiatric Psychiatric: Abnormal Sleep Pattern, Depression, Irritability, Suicidal Ideation Mental Status Examination - Personal Presentation Personal Presentation: Looks stated age - Affect Affect: Broad - Motor Activity Motor Activity: Calm - Reliability in Providing Information Reliability in Providing Information: Good - Speech Speech: Organized - Mood Mood: Neutral - Formal Thought Process Formal Thought Process: No Impairment - Obsessions/Compulsions Obsessions: No Compulsions: No - Cognitive Functions Orientation: Person, Place, Situation, Time Sensorium: Alert Attention/Concentration: Attentive Estimate of Intelligence: Average Judgement: Intact, as evidence by: Good judgement, Intact, as evidence by: Insight regarding need for hospitalization Memory: Recent intact, as evidence by: Ability to recall events of the day, Remote intact, as evidenced by: Abilit to recall sig. life events, Remote intact , as evidenced by: Ability to recall historical events - Risk Risk: Suicidal - Strength & Assets Inventory Strength & Assets Inventory: Family support, Cooperative DSM 5 DX - DSM 5 DSM 5 Diagnosis: Major Depressive Disorder, Marijuana abuse - Recommended/Plan of Treatment Treatment Recommendations and Plan of Treatment: 20 yo female w/ h/o depression presents s/p suicide attempt of antidepressants, now denying current suicidal ideation/plan/intent. Patient needs acute inpatient admission for treatment and stabilization. -Admit to psychiatry -Patient does not want to restart antidepressant medication today due to feeling intermittently light headed, will re-discuss tomorrow -No 1:1 needed as patient is able to contract for safety -Individual, group and milieu tx Projected ELOS: 3-5 days Discharge Plan and Discharge Criteria: Discharge patient when she is psychiatrically stable - Smoking Cessation Smoking Cessation Initiated: No Reason for not providing: Not indicated
--- NOTE | 2016-05-24 11:09 | PCM.PYCHPN ---
Psychiatric Progress Note - Psychiatric Progress Note Patient seen today, length of contact: Patient evaluated, case discussed with team, chart reviewed Patient Chief Complaint: I'm feeling better Problems Identified/Issues Discussed: Patient reports improvement in mood. She denies any mood or psychotic symptoms. She engages appropriately in groups and with peers. NO self injurious ideation. She was agreeable to starting Zoloft 50 mg PO Daily, r/b/ se reviewed. Medication Change: Yes (Start Zoloft 50 mg PO Daily) Medical Record Reviewed: Yes Mental Status Examination - Cognitive Function Orientation: Person, Place, Situation, Time Memory: Intact Attention: WNL Concentration: WNL Association: [facility] Fund of Knowledge: WN - Mood Mood: Neutral - Affect Affect: Broad - Speech Speech: Appropriate - Formal Thought Process Formal Thought Process: No Impairment Psychotic Thoughts and Behaviors: NO AH/VH/paranoia - Suicidal Ideation Suicidal Ideation: No - Homicidal Ideation Homicidal Ideation: No Goal/Treatment Plan - Goal/Treatment Plan Need for Continued Stay: Remain at risks for inpatient hospitalization Progress Toward Problem(s) and Goals/Treatment Plan: 20 yo female w/ h/o depression presents s/p suicide attempt of antidepressants, now denying current suicidal ideation/plan/intent. Patient reports that her mood has improved and denies SI. -Start Zoloft 50 mg PO Daily -No 1:1 needed as patient is able to contract for safety -Individual, group and milieu tx
--- NOTE | 2016-05-25 11:56 | PCM.PYCHPN ---
Psychiatric Progress Note - Psychiatric Progress Note Patient seen today, length of contact: Patient evaluated, case discussed with team, chart reviewed Patient Chief Complaint: I'm feeling better Problems Identified/Issues Discussed: Patient reports improved mood. She continues to deny ideation to harm herself. She engages appropriately in the community with peer and participates in group. She has bright affect and is calm and pleasant. She is goal oriented. No adverse effects to Zoloft. As per , collateral was obtained from the patient's family and they feel safe bringing her home tomorroew. Medication Change: No Medical Record Reviewed: Yes Mental Status Examination - Cognitive Function Orientation: Person, Place, Situation, Time Memory: Intact Attention: WNL Concentration: WNL Association: WNL Fund of Knowledge: [facility] [place] Decription of patient's judgement and insights: Good I/J - Mood Mood: Neutral - Affect Affect: Broad - Speech Speech: Appropriate - Formal Thought Process Formal Thought Process: No Impairment Psychotic Thoughts and Behaviors: NO AH/VH/paranoia - Suicidal Ideation Suicidal Ideation: No - Homicidal Ideation Homicidal Ideation: No Goal/Treatment Plan - Goal/Treatment Plan Need for Continued Stay: Remain at risks for inpatient hospitalization Progress Toward Problem(s) and Goals/Treatment Plan: 20 yo female w/ h/o depression presents s/p suicide attempt w/ antidepressants, now denying current suicidal ideation/plan/intent. Patient reports that her mood has improved and denies SI. -Continue Zoloft 50 mg PO Daily -Discharge tomorrow -Individual, group and milieu tx Estimated Date of D/C: 05/26/16 - Smoking Cessation Smoking Cessation Initiated: No Reason for not providing: Not indicated
[2016-05-26 09:10] VITALS: BP 122/83; PULSE 97; RESP 20; TEMP 97.9
--- NOTE | 2016-05-26 13:24 | PCM.PYCHDC ---
Mental Status Examination - Mental Status Examination Orientation: Person, Place, Situation, Time Memory: Intact Mood: Neutral Affect: Broad Speech: Appropriate Attention: WNL Concentration: WNL Association: WNL Fund of Knowledge: WNL Description of patient's judgement and insight: fair insight/judgment Psychotic Thoughts and Behaviors: denies any a/v hallucinations Suicidal Ideation: No Current Homicidal Ideation?: No Discharge Summary - Discharge Note Reason for Hospitalization: suicidal behaviors Psychiatric History (includes Medical, Family, Personal Hx): pt has history of treatment for depression as an outpatient Consultations:: List each consultation separately and include: 1. Reason for request. 2. Findings. 3. Follow-up Consultations: seen by the hospitalist Summary of Hospital Course include:: 1. Description of specific treatment plan utilized for patients during their course of treatmen. 2. Summarize the time- course for resolution of acute symptoms and/or regressed behaviors. 3. Describe issues identified and worked on during hospitalization. 4. Describe medication utilized. 5. Describe medical problems identified and treated. 6. Reassessment of suicide risk Summary of Hospital Course: admitted to [facility] and oriented to the unit. placed on routine safety protocols. was started on zoloft by covering . her mood improved. she was socializing with peers. she was denying any suicidal thoughts and was future oriented and wanting to get back to her school and family. she met with the treatment team on day of discharged and was in agreement with plan to discharge and follow up with her outpatient providers. - Final Diagnosis (DSM 5) Condition upon Discharge: GOOD DSM 5: major depression recurrent moderate Disposition: HOME/ ROUTINE Follow-up Treatment Plan: follow up with outpatient providers as directed take medications as prescribed do not use alcohol, tobacco or other illicit substances call 911 if any suicidal or homicidal thoughts. Prescriptions/Medication Reconciliation: traZODone [Desyrel] 50 mg PO HS PRN #30 tab PRN Reason: Insomnia Sertraline [Zoloft] 50 mg PO DAILY #30 tab - Smoking Cessation Smoking Cessation Medication prescribed: No Reason for not providing: declines - Antipsychotic Medications Pt discharged on 2 or more routine antipsychotic medications: No
== END 2016-05-26 14:27 | disposition home or self-care (01) | DRG 885 ==
LOC: H.PSYCH 19:43
PROVIDERS: ADMIT Psychiatry & Neurology Psychiatry; ATTEND Psychiatry & Neurology Psychiatry
PROC: GZHZZZZ Group Psychotherapy (ICD-10-PCS; principal; 2016-05-22)
DX: F33.1 Major depressive disorder, recurrent, moderate (principal); F12.10 Cannabis abuse, uncomplicated; T43.222A Poisoning by selective serotonin reuptake inhibitors, intentional self-harm, initial encounter; T43.292A Poisoning by other antidepressants, intentional self-harm, initial encounter; Y92.9 Unspecified place or not applicable